=== PATIENT | male | born 1940 | race Caucasian/White ===

== ENCOUNTER 2023-11-09 12:18 | Inpatient (IN) | payer OTHER ==
[~2023-11-09 12:18] MED LIST: Iopamidol 370 76% 100 ML VIAL ONE
[2023-11-09 13:25] LABS: #Basophils 0.1 10x3/uL (0.0-0.2); #Eosinphils 0.3 10x3/uL (0.0-0.5); #Monocytes 1.1 10x3/uL (0.0-1.1); #Neutrophils 7.6 10x3/uL (1.5-8.4); %Basophils 0.6 % (0.0-2.0); %Eosinophils 2.9 % (0.0-6.0); %Lymphocytes 15.5 % (18.0-47.0); %Monocytes 10.3 % (0.0-10.0); %Neutrophils 70.1 % (40.0-75.0); Hematocrit 27.1 % (38.8-50.0); Hemoglobin 8.7 g/dL (13.5-17.5); Mean Corpuscular HGB CONC 32.1 g/dL (32.0-36.0); Mean Corpuscular Hemoglobin 27.2 pg (27.0-33.0); Mean Corpuscular Volume 84.7 fl (81.2-95.1); Mean Platelet Volume 9.2 fl (7.4-10.4); Platelet Count 317 10x3/uL (150-450); White Blood Cell (WBC) Count 10.8 10x3/uL (3.5-10.5)
[2023-11-09 13:29] LABS: ALT (SGPT) 16 U/L (8-55); AST (SGOT) 15 U/L (5-34); Albumin 3.8 g/dL (3.4-4.8); Alkaline Phosphatase 85 U/L (40-110); Anion Gap 14 mmol/L (10-20); BUN (Urea Nitrogen) 26 mg/dL (8.4-25.7); Bilirubin, Total 0.7 mg/dL (0.2-1.2); Calc. Creatinine Clearance 0 mL/min (70-130); Calcium 8.8 mg/dL (7.8-10.44); Carbon Dioxide 20 mmol/L (23-31); Chloride 106 mmol/L (98-107); Estimated GFR 45; Globulin 2.7 g/dL (2.4-3.5); Glucose 109 mg/dL (83-110); Potassium 4.9 mmol/L (3.5-5.1); Protein, Total 6.5 g/dL (5.8-8.1); Sodium 135 mmol/L (136-145)
[2023-11-09 13:41] LABS: Critical Call Chem Troponin I ERS.CP1 AT 1338; Troponin I 1.023 ng/mL (< 0.028)
[2023-11-09] MEDS ORDERED: Nitroglycerin 2% Ointment 1 INCH/1 GM Packet ONE (13:58)
[2023-11-09] MEDS ORDERED: Furosemide 100 MG (10 mL) VIAL ONE (13:58)
[2023-11-09 14:38] LABS: INR-International Normal Ratio 1.1; PTT 28.5 sec (22.0-33.0); Prothrombin Time 11.4 sec (9.5-12.1)
[2023-11-09] MEDS ORDERED: Heparin 10,000 UNITS/ 10 ML VIAL ONE (15:19)
[2023-11-09] MEDS ORDERED: Heparin 25,000 units/D5W 500 ML ONE (15:19)
[2023-11-09] MEDS ORDERED: Acetaminophen 325 MG TAB PO PRN (15:48)
[2023-11-09] MEDS ORDERED: Acetaminophen 650 MG Suppository PR PRN (15:48)
[2023-11-09] MEDS ORDERED: Morphine 4 MG/ML VIAL SLOW IVP PRN (15:50)
[2023-11-09] MEDS ORDERED: Morphine 2 MG/ML VIAL SLOW IVP PRN (15:50)
[2023-11-09] MEDS ORDERED: Heparin 25,000 units/D5W 500 ML IVPB SCH (16:00)
[2023-11-09 16:29] LABS: Hematocrit 29.2 % (38.8-50.0); Hemoglobin 9.3 g/dL (13.5-17.5); Platelet Count 345 10x3/uL (150-450)
[2023-11-09 16:34] LABS: Critical Call Chem Troponin I NUR.BS8 AT 1628; Troponin I 1.714 ng/mL (< 0.028)
[2023-11-09 17:44] LABS: Bilirubin Neg (Negative); Blood, Urine Negative (Negative); Clarity Clear (Clear); Glucose, Urine (Dipstick) Normal (Negative); Ketone, Urine Negative (Negative); Leukocyte Negative (Negative); Nitrite Negative (Negative); Protein, Urine (Dipstick) Negative (Neg-Trace); Urobilinogen Normal mg/dL (Less than 2)
[2023-11-09 17:45] VITALS: BMI 29.7
[2023-11-09 17:55] LABS: Bacteria/HPF Rare-Few HPF (None Seen); RBC/HPF None Seen HPF (0-3); Squamous Epithelial None Seen HPF (0-3); WBC/HPF None Seen HPF (0-3)
[2023-11-09] MEDS ORDERED: Communication Order-Pharmacy FS SCH (18:00)
[2023-11-09] MEDS: Clopidogrel Bisulfate 300 MG TAB PO SCH (19:05)
[2023-11-09 20:00] LABS: Troponin I 1.358 ng/mL (< 0.028)
[2023-11-09] MEDS ORDERED: Metoprolol Tartrate 50 MG TAB PO SCH (21:00)
[2023-11-09] MEDS: Nitroglycerin 2% Ointment 1 INCH/1 GM Packet TOP SCH (21:37)
[2023-11-09] MEDS: diphenhydrAMINE 25 MG CAP PO SCH (21:37)
[2023-11-09] MEDS: predniSONE 20 MG TAB PO SCH (21:38)
[2023-11-09] MEDS: Atorvastatin Calcium 40 MG TAB PO SCH (21:38)
[2023-11-09] MEDS: Heparin 10,000 UNITS/ 10 ML VIAL SLOW IVP SCH (23:00)
[2023-11-10 05:09] LABS: #Basophils 0.1 10x3/uL (0.0-0.2); #Monocytes 0.3 10x3/uL (0.0-1.1); #Neutrophils 7.7 10x3/uL (1.5-8.4); %Basophils 0.6 % (0.0-2.0); %Eosinophils 0.1 % (0.0-6.0); %Lymphocytes 12.1 % (18.0-47.0); %Monocytes 2.8 % (0.0-10.0); %Neutrophils 83.8 % (40.0-75.0); Hematocrit 28.3 % (38.8-50.0); Mean Corpuscular HGB CONC 31.8 g/dL (32.0-36.0); Mean Corpuscular Hemoglobin 26.6 pg (27.0-33.0); Mean Corpuscular Volume 83.7 fl (81.2-95.1); Mean Platelet Volume 9.2 fl (7.4-10.4); Platelet Count 357 10x3/uL (150-450); RBC Distribution Width 15.3 % (11.5-14.5); Red Blood Cell (RBC) Count 3.38 10x6/uL (4.32-5.72); White Blood Cell (WBC) Count 9.2 10x3/uL (3.5-10.5)
[2023-11-10 05:25] LABS: INR-International Normal Ratio 1.1; PTT 43.8 sec (22.0-33.0); Prothrombin Time 11.8 sec (9.5-12.1)
[2023-11-10 05:27] LABS: ALT (SGPT) 19 U/L (8-55); AST (SGOT) 17 U/L (5-34); Alkaline Phosphatase 86 U/L (40-110); Anion Gap 16 mmol/L (10-20); BUN (Urea Nitrogen) 31 mg/dL (8.4-25.7); Bilirubin, Total 0.8 mg/dL (0.2-1.2); Calc. Creatinine Clearance 45 mL/min (70-130); Calcium 9.3 mg/dL (7.8-10.44); Carbon Dioxide 19 mmol/L (23-31); Chloride 105 mmol/L (98-107); Estimated GFR 41; Globulin 3.4 g/dL (2.4-3.5); Glucose 157 mg/dL (83-110); Potassium 4.7 mmol/L (3.5-5.1); Protein, Total 7.4 g/dL (5.8-8.1); Sodium 135 mmol/L (136-145)
[2023-11-10 05:31] LABS: Cardiac Risk 3.1 (Less than 4.5); Cholesterol 86 mg/dl (< 200 Desired); HDL Cholesterol 28 mg/dL (>60 Neg Risk); LDL Cholesterol, Calculated 44 mg/dL; Triglycerides 68 mg/dL (Less than 150)
[2023-11-10] MEDS: Famotidine 20 MG TAB PO SCH (06:25)
[2023-11-10] MEDS: predniSONE 20 MG TAB PO SCH (06:25)
[2023-11-10] MEDS: DULoxetine 30 MG CAP PO SCH (06:25)
[2023-11-10] MEDS: Clopidogrel Bisulfate 75 MG TAB PO SCH (06:26)
[2023-11-10] MEDS: Lisinopril 20 MG TAB PO SCH (06:26)
[2023-11-10] MEDS: Carvedilol 6.25 MG TAB PO SCH (06:26)
[2023-11-10] MEDS: Aspirin 81 mg Enteric Coated Tablet PO SCH (06:27)
[2023-11-10] MEDS: Levothyroxine Sodium 50 MCG TAB PO SCH (06:34)
[2023-11-10] MEDS ORDERED: Heparin 10,000 UNITS/ 10 ML VIAL ONE (08:58)
[2023-11-10] MEDS ORDERED: Nitroglycerin 50 MG/250 ML BOT 250 ML ONE (08:58)
[2023-11-10] MEDS ORDERED: fentaNYL 50 mcg/mL 1 mL Vial ONE (08:59)
[2023-11-10] MEDS ORDERED: Midazolam HCl 2 mg/2 ml Vial ONE (08:59)
[2023-11-10] MEDS ORDERED: Verapamil 5 MG/2 ML VIAL ONE (08:59)
[2023-11-10] MEDS ORDERED: Adenosine 6 mg (2 mL) VIAL ONE (08:59)
[2023-11-10] MEDS ORDERED: Atropine Sulfate 1 mg/1 ml Vial ONE (08:59)
[2023-11-10] MEDS: Furosemide 40 MG TAB PO SCH (09:19)
[2023-11-10] MEDS ORDERED: Lidocaine 1% (PF) 30 ML VIAL ONE (09:56)
[2023-11-10] MEDS ORDERED: Sodium Chloride 0.9% 200 ML IV PRN (10:35)
[2023-11-10] MEDS ORDERED: Acetaminophen/Codeine 30-300mg Tablet PO PRN ×2 (10:35)
[2023-11-10] MEDS ORDERED: Nitroglycerin 0.4 MG TAB (25 Tab Bottle) SL PRN (10:35)
[2023-11-10] MEDS ORDERED: Iopamidol 300 61% 100 ML VIAL FS ONE (12:29)
[2023-11-11 00:37] VITALS: BP 162/72; TEMP 97.9
== END 2023-11-11 00:40 | disposition short-term general hospital (02) | DRG 280 ==
LOC: EEVIPCON 12:18 → SUATTDRO 12:18 → CSHERS 12:18 → CSHTELE 15:13
PROVIDERS: ADMIT Family Medicine; ATTEND Internal Medicine
PROC: 4A023N7 Measurement of Cardiac Sampling and Pressure, Left Heart, Percutaneous Approach (ICD-10-PCS; principal; 2023-11-10)
PROC: B2111ZZ Fluoroscopy of Multiple Coronary Arteries using Low Osmolar Contrast (ICD-10-PCS; 2023-11-10)
PROC: B2151ZZ Fluoroscopy of Left Heart using Low Osmolar Contrast (ICD-10-PCS; 2023-11-10)
DX: I21.4 Non-ST elevation (NSTEMI) myocardial infarction (principal); I50.23 Acute on chronic systolic (congestive) heart failure; N17.9 Acute kidney failure, unspecified; I13.0 Hypertensive heart and chronic kidney disease with heart failure and stage 1 through stage 4 chronic kidney disease, or unspecified chronic kidney disease; D64.9 Anemia, unspecified; F32.A Depression, unspecified; I73.9 Peripheral vascular disease, unspecified; K21.9 Gastro-esophageal reflux disease without esophagitis; N18.9 Chronic kidney disease, unspecified; I25.10 Atherosclerotic heart disease of native coronary artery without angina pectoris; I25.2 Old myocardial infarction; Z95.5 Presence of coronary angioplasty implant and graft; Z98.890 Other specified postprocedural states; Z87.891 Personal history of nicotine dependence; Z79.82 Long term (current) use of aspirin; Z79.890 Hormone replacement therapy; Z91.041 Radiographic dye allergy status
CPT/HCPCS: 36415; 71045; 71275; 80053; 80061; 81001; 83880; 84443; 84484; 85025; 85379; 85610; 85730; 86850; 86900; 86901; 93005; 93306; 93459; 93970; 94760; 96361; 96374; 96375; C1769; C1894; J0153; J0461; J1644; J1940; J2001; J2250; J3010; J7512; Q9967